=== PATIENT | male | born 1985 | race Caucasian/White ===

== ENCOUNTER 2019-09-15 09:29 | Emergency (ER) | payer BC, SELFPAY ==
[2019-09-15 09:38] VITALS: BP 144/75; PULSE 99; RESP 20; TEMP 37.7; O2SAT 100
--- NOTE | 2019-09-15 09:47 | ED.URI ---
HPI - URI/Sore Throat General Chief Complaint: Upper Respiratory Infection Stated Complaint: cough/fever/diarrhea Time Seen by Provider: 09/15/19 09:47 Source: patient and RN notes reviewed History of Present Illness HPI Narrative: Patient is a 33-year-old male that presents the urgent care with complaints of cough, fever, body aches, chills. Patient states he is also had 2 loose stools this morning. States that symptoms started 3 days ago and he has been using DayQuil and NyQuil. Denies any shortness of breath or wheezing. No other acute complaints. No acute distress noted. Patient read the plan of care. Related Data Home Medications Medication Instructions Recorded Confirmed famotidine [Pepcid] 20 mg PO BID 09/15/19 09/15/19 Allergies Allergy/AdvReac Type Severity Reaction Status Date / Time No Known Allergies Allergy Verified 09/15/19 09:41 Review of Systems Review of Systems: Narrative: CONSTITUTIONAL: Reports a fever, chills, sweats EYES: Denies visual changes, redness, or discharge. ENT: Denies rhinorrhea, congestion, sore throat, or otalgia. CARDIOVASCULAR: Denies chest pain, palpitations, or edema. RESPIRATORY: Reports of nonproductive cough without dyspnea GASTROINTESTINAL: Denies abdominal pain, nausea, vomiting, or diarrhea. GENITOURINARY: Denies dysuria or hematuria. SKIN: Denies rash or itching. MUSCULOSKELETAL: Denies back pain, joint pain; reports of body aches NEUROLOGIC: Denies headache, numbness, or weakness. All other systems reviewed are negative, except as documented in HPI. PMFSH Comments At the time of my signature, I reviewed and agree with the nursing past medical, surgical, social, and family history. There is no relevant family history pertinent to the patient complaint. Exam Narrative: Exam Narrative: GENERAL: This is a well-nourished, well-developed patient, i appears fatigued and slightly flushed HEAD: normocephalic, atraumatic. EYES: PERRL. Sclera clear/white. Vision is grossly intact. EARS: External ears normal, auditory canals clear and without drainage, TMs normal without perforation. Hearing grossly intact. NOSE: External nose normal with no obvious nasal discharge, nares without redness, no rhinorrhea. THROAT: Mucous membranes moist, posterior pharynx clear. Moderate postnasal drainage NECK: Neck supple CARDIOVASCULAR: Regular rate and rhythm without murmurs, gallops, or rubs. RESPIRATORY: Clear to auscultation. Breath sounds equal bilaterally. No wheezes, rales, or rhonchi. SKIN: warm, intact with no suspicious lesions or rash, good texture and turgor. NEURO: awake, alert, and oriented to person, place and time. There were no obvious focal neurologic abnormalities. EXTREMITIES: No clubbing, cyanosis, or edema. Course Vital Signs Vital signs: Vital Signs Temperature 100 F H 09/15/19 09:38 Pulse Rate 99 09/15/19 09:38 Respiratory Rate 20 09/15/19 09:38 Blood Pressure 144/75 H 09/15/19 09:38 Pulse Oximetry 100 09/15/19 09:38 Temperature 100 F H 09/15/19 09:38 Pulse Rate 99 09/15/19 09:38 Respiratory Rate 20 09/15/19 09:38 Blood Pressure 144/75 H 09/15/19 09:38 Pulse Oximetry 100 09/15/19 09:38 Reviewed?patient is informed that they may have pre-hypertension or hypertension based on a blood pressure reading in the department. I recommend the patient call the primary care provider listed on their discharge instructions or a physician of their choice this week to arrange follow-up for further evaluation of possible pre-hypertension or hypertension. MDM - URI/Sore Throat MDM Narrative Medical decision making narrative: Reviewed lab results with the patient. He is aware that he is positive for influenza B. Treat symptoms with [id number] medication such as Robitussin/Delsym for cough, Claritin for allergy-like symptoms, Flonase for nasal congestion, Tylenol/Motrin for fever/body aches. Increase fluids, especially water and rest. Use a humi
== END 2019-09-15 10:08 | disposition home or self-care (01) ==
PROVIDERS: Emergency Provider Nurse Practitioner Family
DX: J10.1 Influenza due to other identified influenza virus with other respiratory manifestations (principal)
CPT/HCPCS: 87804; 99213; G0463

== ENCOUNTER 2021-11-27 12:31 | Emergency (ER) | payer BC, SELFPAY ==
--- NOTE | 2021-11-27 12:37 | ED.MALEGU ---
HPI - Male Genitourinary General Chief complaint: Urogenital-Male Stated complaint: FREQUENT/BURNING URINATION Time Seen by Provider: 11/27/21 12:37 Source: patient Mode of arrival: ambulatory Limitations: no limitations History of Present Illness HPI Narrative: Mr. Lo is a 36-year-old male patient presenting to the clinic today with complaints of frequency and burning with urination x2 weeks He reports he is getting over a upper respiratory infection and had noticed some burning and urinary frequency. He denies any hesitancy, testicular pain, abdominal pain, fever, chills, or flank pain. He denies any painful ejaculation or blood during ejaculation. Denies any penile discharge. He denies any known exposure to any STDs. No new partners recently. MD Complaint: dysuria Related Data Home Medications Medication Instructions Recorded Confirmed famotidine 20 mg tablet (Pepcid) 20 mg PO BID 09/15/19 09/15/19 Prilosec 11/27/21 Allergies Allergy/AdvReac Type Severity Reaction Status Date / Time No Known Allergies Allergy Verified 09/15/19 09:41 Review of Systems Review of Systems: Pertinent positives per HPI. Patient denies any fever, chills, rash, headache, visual changes, dizziness, cough, runny nose, sore throat, shortness of breath, chest pain, palpitations, nausea, vomiting, diarrhea, constipation, abdominal pain. PMFSH Comments At the time of my signature, I reviewed and agree with the nursing past medical, surgical, social, and family history. There is no relevant family history pertinent to the patient complaint. Exam Narrative: General: Well-developed, well nourished, in no apparent distress. Head: Normocephalic, atraumatic. Cardio: Regular rate and rhythm, s1 and s2 normal, no murmur appreciated. Resp: Clear to auscultation bilaterally, no rhonchi, rales, wheezing or rubs. Abdomen: Soft, pliable, bowel sounds present in all quadrants, mild tenderness to palpation over the suprapubic area, no organomegly, no CVAT tenderness. Course Course Emergency Course: Portions of this record may have been created with voice recognition software. Level of Care: Express Care Visit Vital Signs Vital signs: Vital signs reviewed MDM - Male Genitourinary MDM Narrative Medical decision making narrative: At the time of visit patient is resting comfortably on the exam table. UA was obtained and showed positive nitrate and trace of glucose. Random blood glucose test done in the clinic and his blood glucose was 86. I suspect that the patient may have urinary tract infection versus prostatitis. I will treat with a 10-day course of Bactrim and have him follow-up with his PCP if symptoms persist to evaluate the need for further antibiotics or testing. He voiced understanding and anticipatory guidance was given and supportive measures were discussed and he voiced understanding of discharge and instructions and agrees to treatment plan. Differential Diagnosis Differential diagnosis: Likely urinary tract infection, urethritis, epididymitis, prostatitis, acute retention of urine and other (STI) Discharge Plan Discharge Clinical Impression: Urinary tract infection Patient Disposition: Home, Self-Care Condition: Stable Instructions: Antibiotic Form, Prostatitis (ED), Urinary Tract Infection in Men (ED) Additional Instructions: UA positive for trace of glucose and nitrate. Will send for culture This could be urinary tract infection versus prostatitis. Will send prescription for Bactrim DS x10 days and if symptoms persist he should follow-up with his PCP to discuss further evaluation and longer duration of antibiotics for treatment of acute prostatitis. Bactrim DS 1 tab twice daily as directed Increase fluids and stay well hydrated Avoid tub baths If sexually active- pee before and after intercourse. Follow up with your PCP in 1 week if symptoms persist. Prescriptions: New sulfamethoxazo
[2021-11-27 12:38] VITALS: BP 135/88; PULSE 92; RESP 16; TEMP 36.3; O2SAT 100
[2021-11-27 12:53] LABS: Glucose Point of Care 86 mg/dl (65-105)
== END 2021-11-27 13:10 | disposition home or self-care (01) ==
PROVIDERS: Emergency Provider Nurse Practitioner Family
DX: N39.0 Urinary tract infection, site not specified (principal)
CPT/HCPCS: 81003; 82948; 87086; 99213; G0463